=== PATIENT | male | born 1945 | race Caucasian/White ===

== ENCOUNTER 2023-06-05 16:44 | Emergency (ER) | payer OTHER ==
[~2023-06-05] VITALS: Ht 182.9 cm; Wt 90.7 kg
[~2023-06-05 16:44] MED LIST: ACET500 PO; ALLERCLEAR10 MG PO; DOCU100 PO; DOXA4 PO; ENOX40I SC; FERR325 PO; FLUO10; FLUO10 PO; HYDACE10B; HYDACE10B PO; IBUP800 PO; LEVSOD100 PO; LEVSOD150; LEVSOD150 PO; LISI20 PO; LORA.5 PO; LORA10 PO; OMEP20ER PO; PRAV20 PO; Percocet 5-3251 EACH PO; ROXICODONE5 MG PO; TERA5 PO; WARF3 PO
[2023-06-05 17:15] LABS: BASOPHILS ABSOLUTE AUTO 0.05 K/mm3 (0.00-0.23); BASOPHILS PERCENT AUTO 1 % (0-2); EOSINOPHILS ABSOLUTE AUTO 0.15 K/mm3 (0.00-0.68); EOSINOPHILS PERCENT AUTO 2 % (0-6); Hematocrit 44.9 % (37.0-53.0); Hemoglobin 15.2 g/dL (13.5-17.5); IMMATURE GRAN ABSOLUTE AUTO 0.03 K/mm3 (0.00-0.10); IMMATURE GRAN PERCENT AUTO 0 % (0-1); LYMPHOCYTES ABSOLUTE AUTO 1.09 K/mm3 (0.84-5.20); LYMPHOCYTES PERCENT AUTO 15 % (21-46); MONOCYTES ABSOLUTE AUTO 0.52 K/mm3 (0.16-1.47); MONOCYTES PERCENT AUTO 7 % (4-13); Mean Corpuscular HGB 30.2 pg (26.0-34.0); Mean Corpuscular HGB Conc 33.9 g/dL (31.5-36.5); Mean Corpuscular Volume 89 fL (80-100); Mean Platelet Volume 10.2 fL (9.1-12.4); NEUTROPHILS ABSOLUTE AUTO 5.53 K/mm3 (1.96-9.15); NEUTROPHILS PERCENT AUTO 75 % (41-73); Platelet Count 138 K/mm3 (150-400); RDW Coefficient Variation 13.7 % (11.7-14.2); RDW Standard Deviation 44.1 fL (35.1-46.3); Red Blood Cell Count 5.04 M/mm3 (4.30-5.90); White Blood Cell Count 7.37 K/mm3 (4.00-11.30)
[2023-06-05 17:34] LABS: Albumin, Blood 3.8 g/dL (3.4-5.0); Albumin/Globulin Ratio 1.2 (0.8-1.8); Bilirubin, Total 0.6 mg/dL (0.1-1.0); Bun/Creatinine Ratio 15.8 (12.0-20.0); Calcium, Blood 9.8 mg/dL (8.5-10.1); Creatinine, Blood 0.95 mg/dL (0.60-1.20); Globulin, Blood 3.3 g/dL (2.2-4.0); Total Protein, Blood 7.1 g/dL (6.4-8.2)
[2023-06-05] MEDS ORDERED: Lisinopril 20 MG Tab PO ONE (20:45)
[2023-06-05] MEDS ORDERED: Zestril40 MG PO (20:56)
[2023-06-05 21:38] VITALS: BP 163/101
== END 2023-06-05 21:45 | disposition home or self-care (01) ==
LOC: ER 16:44
PROVIDERS: Physician Assistant
DX: I10 Essential (primary) hypertension (principal); H61.23 Impacted cerumen, bilateral; Z88.0 Allergy status to penicillin; Z79.899 Other long term (current) drug therapy
CPT/HCPCS: 70450; 80053; 84484; 85025; 93005; 93010; 99284-25; A9270

== ENCOUNTER → 2023-10-19 | Outpatient (CLI) | payer OTHER ==
[~2023-10-19] MED LIST changes: +Zestril40 MG PO
[2023-10-19 14:01] LABS: BASOPHILS ABSOLUTE AUTO 0.02 K/mm3 (0.00-0.23); BASOPHILS PERCENT AUTO 0 % (0-2); EOSINOPHILS ABSOLUTE AUTO 0.27 K/mm3 (0.00-0.68); EOSINOPHILS PERCENT AUTO 5 % (0-6); Hematocrit 43.4 % (37.0-53.0); Hemoglobin 14.6 g/dL (13.5-17.5); IMMATURE GRAN ABSOLUTE AUTO 0.02 K/mm3 (0.00-0.10); IMMATURE GRAN PERCENT AUTO 0 % (0-1); LYMPHOCYTES ABSOLUTE AUTO 1.55 K/mm3 (0.84-5.20); LYMPHOCYTES PERCENT AUTO 28 % (21-46); MONOCYTES ABSOLUTE AUTO 0.55 K/mm3 (0.16-1.47); MONOCYTES PERCENT AUTO 10 % (4-13); Mean Corpuscular HGB 30.4 pg (26.0-34.0); Mean Corpuscular HGB Conc 33.6 g/dL (31.5-36.5); Mean Corpuscular Volume 90 fL (80-100); Mean Platelet Volume 10.1 fL (9.1-12.4); NEUTROPHILS ABSOLUTE AUTO 3.06 K/mm3 (1.96-9.15); NEUTROPHILS PERCENT AUTO 56 % (41-73); Platelet Count 138 K/mm3 (150-400); RDW Coefficient Variation 13.1 % (11.7-14.2); RDW Standard Deviation 42.8 fL (35.1-46.3); Red Blood Cell Count 4.81 M/mm3 (4.30-5.90); White Blood Cell Count 5.47 K/mm3 (4.00-11.30)
[2023-10-19 15:16] LABS: Albumin, Blood 3.9 g/dL (3.4-5.0); Albumin/Globulin Ratio 1.3 (0.8-1.8); Bilirubin, Total 0.8 mg/dL (0.1-1.0); Bun/Creatinine Ratio 16.5 (12.0-20.0); Calcium, Blood 9.7 mg/dL (8.5-10.1); Creatinine, Blood 0.97 mg/dL (0.60-1.20); Globulin, Blood 3.1 g/dL (2.2-4.0); Potassium, Blood 4.1 mmol/L (3.5-5.5); Thyroid Stimulating Hormone 0.627 uIU/mL (0.360-4.800)
== END ==
LOC: LAB SHORT 13:05 → LAB 13:05
PROVIDERS: Physician Assistant
DX: E03.9 Hypothyroidism, unspecified (principal); R60.0 Localized edema
CPT/HCPCS: 80053; 83880; 84443; 85025

== ENCOUNTER 2024-08-11 08:40 | Day surgery (SDC) | payer OTHER ==
[~2024-08-11] VITALS: Ht 172.7 cm; Wt 95.0 kg
[2024-08-11] VITALS (12 sets, daily range): BP systolic 98–163; BP diastolic 59–104
[~2024-08-11 08:40] MED LIST changes: +AMLO10 PO; +Bisoprolol Fumar5 MG PO; +DUTA.5 PO; +GLIP2.5ER PO; -LEVSOD100 PO; +SILD50TA PO; +Synthroid200 MCG PO
[2024-08-11] MEDS ORDERED: OxyCODONE HCL 10 MG TABCR PO SCH (09:10)
[2024-08-11] MEDS ORDERED: Ropivacaine 0.5% HCl/Pf 123.125 MG,EPINEPHrine HCL 0.25 MG,Ketorolac Tromethamine 15 MG... INFIL SCH (09:10)
[2024-08-11] MEDS ORDERED: Acetaminophen 500 MG Tab PO SCH ×2 (09:10→16:00)
[2024-08-11] MEDS ORDERED: Lactated Ringer's 1,000 ML IV SCH ×2 (09:10→14:10)
[2024-08-11] MEDS ORDERED: CeFAZolin Sodium 2,000 MG in NS 100 ML IV SCH ×3 (09:10→16:00)
[2024-08-11] MEDS ORDERED: Chlorhexidine Mouth Care 15 ML UDC MT SCH (09:10)
[2024-08-11] MEDS ORDERED: Tranexamic Acid 100 ML IV SCH (09:16)
[2024-08-11] MEDS ORDERED: Bisoprolol Fumar5 MG PO (09:39)
[2024-08-11] MEDS ORDERED: TAMS.4ER PO (09:41)
[2024-08-11] MEDS ORDERED: CeFAZolin Sodium 2,000 MG VIAL ONE (09:52)
--- NOTE | 2024-08-11 10:32 | NUR ---
History, Chart, Medications and Allergies reviewed before start of procedure.Lungs clear T/O to Auscultation. Pre-Op teaching done. Pt verbalizes understanding. AT BEDSIDE, HAS PTS GLASSES, NOZIN SWABS BILAT NOSTRILS
[2024-08-11] MEDS ORDERED: FentaNYL Citrate 50 MCG/ML 2 ML Injection ONE (11:07)
[2024-08-11] MEDS ORDERED: Midazolam HCl 1MG / ML 2ML Vial ONE (11:07)
[2024-08-11] MEDS ORDERED: propofoL 20 ML IV ONE ×3 (11:09→12:57)
--- NOTE | 2024-08-11 11:12 | NUR ---
AMBULATE TO BR VOIDED PRIOR TO SURGERY
--- NOTE | 2024-08-11 11:24 | NUR ---
PT'S BOTTOM PARTIAL GIVEN TO
[2024-08-11] MEDS ORDERED: Dexamethasone Sod Phos 10 MG/ML 1ML VIAL ONE (11:40)
[2024-08-11] MEDS ORDERED: OxyCODONE HCL 5 MG TAB PO PRN ×2 (14:10)
[2024-08-11] MEDS ORDERED: Metoclopramide HCl 5MG / ML 2ML Vial IV PRN (14:10)
[2024-08-11] MEDS ORDERED: DiphenhydrAMINE HCL 25 MG Cap PO PRN (14:10)
[2024-08-11] MEDS ORDERED: HYDROmorphone HCl/Pf 1MG SYR IV PRN (14:10)
[2024-08-11] MEDS ORDERED: Ondansetron HCl 2 MG / ML 2ML Vial IV PRN (14:10)
[2024-08-11] MEDS ORDERED: Promethazine HCl 25 MG Tab PO PRN (14:10)
[2024-08-11] MEDS ORDERED: ASPI81CH PO (17:35)
[2024-08-11] MEDS ORDERED: Ketorolac Tromethamine 30mg Vial IV SCH (18:00)
--- NOTE | 2024-08-11 18:23 | NUR ---
DISCHARGE SUMMARY PT TOLERATING FOOD AND FLUIDS WELL. PAIN CONTROLLED WELL. WORKED WITH THERAPY. PT COMFORTABLE WITH AMBULATING FOR HOME. VOIDED SUCCESSFULLY. INCISION SITE WNL, AQUACEL AND TATI BANDAGE WNL, NO DRAINAGE. DISCHARGE EDUCATION DISCUSSED ANG GIVEN, AQUACEL DRESSINGS GIVEN. ESCORTED OUT VIA WC.
[2024-08-11] MEDS ORDERED: Docusate Sodium 100 MG Cap PO SCH (21:00)
[2024-08-12] MEDS ORDERED: Aspirin 81 MG Chew PO SCH (09:00)
== END 2024-08-11 18:23 | disposition home or self-care (01) ==
LOC: ORSCMMR 08:40 → ORD 10:00 → ORSCMMR 10:00 → ORD 11:00 → ORSCMMR 14:05 → SURS 14:05 → ORSCMMR 18:23 → SURS 18:23
PROVIDERS: Orthopaedic Surgery
PROC: 0SRD0JA Replacement of Left Knee Joint with Synthetic Substitute, Uncemented, Open Approach (ICD-10-PCS; principal; 2024-08-11 10:00)
DX: M17.12 Unilateral primary osteoarthritis, left knee (principal); E11.9 Type 2 diabetes mellitus without complications; E03.9 Hypothyroidism, unspecified; Z86.73 Personal history of transient ischemic attack (TIA), and cerebral infarction without residual deficits; Z79.899 Other long term (current) drug therapy; Z79.84 Long term (current) use of oral hypoglycemic drugs
CPT/HCPCS: 73560-LT; 82947; 97116; 97161; 97530; A9270; C1713; C1776; J0171; J0690; J0735; J1100; J1885; J2250; J2704; J2795; J3010; J7120

== ENCOUNTER → 2024-09-03 | Outpatient (CLI) | payer OTHER ==
[~2024-09-03] MED LIST changes: +ASPI81CH PO; +TAMS.4ER PO
== END ==
LOC: LAB 10:08 → LAB SHORT 10:08
DX: N39.0 Urinary tract infection, site not specified (principal); R31.9 Hematuria, unspecified
CPT/HCPCS: 87077; 87086; 87186